=== PATIENT | female | born 1955 | race Caucasian/White ===

== ENCOUNTER 2016-11-16 14:04 | Outpatient (CLI) | END 2016-11-16 14:05 | disposition home or self-care (01) | LOC: LAB 14:04 | PROVIDERS: ATTEND Nurse Practitioner Family | DX: J02.9 Acute pharyngitis, unspecified (principal) | CPT/HCPCS: 87651; 87880 ==

== ENCOUNTER 2017-02-09 08:52 | Outpatient (CLI) ==
--- NOTE | 2017-02-10 10:01 | MAMMO ---
EXAM: Screening digital mammogram with 3-D tomosynthesis and CAD HISTORY: Screening mammogram. COMPARISON: Mammogram 02/16/2016 and 01/13/2014 FINDINGS: Breast density is scattered fibroglandular. Benign peripherally calcified cysts are noted in the bilateral breasts. Bilateral intramammary lymph nodes are present. There has been no signific ant interval change. IMPRESSION: No new or suspicious nodule or calcification. Recommendation: Annual screening mammogram. BIRADS II: Benign findings
== END 2017-02-09 08:53 | disposition home or self-care (01) ==
LOC: RAD 08:52
PROVIDERS: ATTEND Internal Medicine
DX: Z12.31 Encounter for screening mammogram for malignant neoplasm of breast (principal)
CPT/HCPCS: 77067

== ENCOUNTER 2020-09-24 17:16 | Inpatient (IN) ==
[2020-09-24 18:01] VITALS: BMI 38.9
[2020-09-24] MEDS ORDERED: NITROSTAT SL PRN (18:03)
[2020-09-24] MEDS ORDERED: ATROPINE SULFATE PFS IVP PRN (18:03)
[2020-09-24] MEDS ORDERED: TYLENOL PO PRN (18:03)
[2020-09-24 18:39] LABS: BASOPHILS # (AUTO) 0.1 K/uL (0-0.2); BASOPHILS % (AUTO) 0.8 % (0.0-3.0); EOSINOPHILS # (AUTO) 0.3 K/ul (0.0-0.7); EOSINOPHILS % (AUTO) 4.2 % (0.0-7.0); HEMATOCRIT 36.6 % (37.0-47.0); HEMOGLOBIN 12.6 g/dl (12.0-16.0); IMMATURE GRANULOCYTE % (AUTO) 0.2 % (0.0-5.0); LYMPHOCYTES # (AUTO) 2.4 K/uL (0.60-3.4); LYMPHOCYTES % (AUTO) 39.8 (10.0-50.0); MEAN CORPUSCULAR HEMOGLOBIN 30.8 pg (27.0-31.0); MEAN CORPUSCULAR HGB CONC 34.4 (31.8-35.4); MEAN CORPUSCULAR VOLUME 89.5 fl (81.0-99.0); MONOCYTES # (AUTO) 0.4 K/uL (0.4-2.0); MONOCYTES % (AUTO) 6.8 (0-10); NEUTROPHILS # (AUTO) 2.9 K/ul (2.0-6.9); NEUTROPHILS % (AUTO) 48.2 % (42.2-75.2); PLATELET COUNT 242 10^3/uL (140-440); RDW COEFFICIENT OF VARIATION 13.8 % (11.6-14.8); RED BLOOD COUNT 4.09 10^6/ul (4.20-5.40); WHITE BLOOD COUNT 6.01 K/ul (4.6-10.2)
[2020-09-24 18:41] LABS: BILIRUBIN,URINE Negative (NEGATIVE); CLARITY,URINE Clear (CLEAR); COLOR,URINE Yellow (YELLOW); GLUCOSE, URINE (UA) Negative (NEGATIVE); KETONES,URINE Negative (NEGATIVE); LEUKOCYTE ESTERASE ,URINE 1+ (NEGATIVE); NITRITE,URINE Negative (NEGATIVE); PH,URINE 5.5 (5-9); PROTEIN,URINE Negative (NEGATIVE); URINE, BLOOD Negative (NEGATIVE)
[2020-09-24 18:46] LABS: BACTERIA,URINE 1+ (NOT PRESENT); URINE RBC, MICROSCOPIC 0-2 (0-2)
--- NOTE | 2020-09-24 18:46 | DI ---
EXAM: PA and lateral views of the chest HISTORY: Short of breath COMPARISON: Chest Xray from 06/05/2020 FINDINGS: Lungs are clear with no lobar consolidation, failure, large effusion or significant atelec tasis. Cardiac and mediastinal silhouettes show no acute abnormality. No acute osseous or soft tiss ue abnormalities. IMPRESSION: 1. No active disease.
[2020-09-24 18:54] LABS: ALANINE AMINOTRANSFERASE 25.1 U/L (0-35); ALBUMIN 4.14 g/dL (3.5-5.0); ALKALINE PHOSPHATASE 38.4 U/L (53-141); ASPARTATE AMINO TRANSFERASE 28.7 U/L (14-36); BILIRUBIN,TOTAL 0.53 mg/dL (0.2-1.3); BLOOD UREA NITROGEN 26.2 mg/dL (7-17); CALCIUM 9.35 mg/dL (8.4-10.2); CARBON DIOXIDE 31.3 mmol/L (22-30.0); CHLORIDE 101.7 mmol/L (98-107); CREATINE KINASE 244.9 U/L (30-135); CREATININE 1.15 mg/dL (0.60-1.30); GLUCOSE 278.8 mg/dL (74-106); SODIUM 139.2 mmol/L (134.5-145); TOTAL PROTEIN 6.69 g/dL (6.3-8.2)
[2020-09-24 19:07] LABS: TROPONIN I < 0.012 ng/ml (0.0000-0.120)
[2020-09-24] MEDS: CARDIZEM PO SCH ×2 (19:24→20:12)
[2020-09-24] MEDS: ELIQUIS PO SCH (20:08)
[2020-09-24] MEDS: LANTUS SUBCUT SCH (20:09)
[2020-09-24] MEDS: FLOMAX PO SCH (20:54)
[2020-09-24] MEDS ORDERED: CARDIZEM PO ONE (22:12)
[2020-09-25 02:29] LABS: CREATINE KINASE 196.6 U/L (30-135)
[2020-09-25 02:42] LABS: TROPONIN I < 0.012 ng/ml (0.0000-0.120)
[2020-09-25 03:23] LABS: BASOPHILS % (AUTO) 0.8 % (0.0-3.0); EOSINOPHILS # (AUTO) 0.2 K/ul (0.0-0.7); EOSINOPHILS % (AUTO) 4.6 % (0.0-7.0); HEMATOCRIT 35.7 % (37.0-47.0); HEMOGLOBIN 12.3 g/dl (12.0-16.0); LYMPHOCYTES # (AUTO) 2.6 K/uL (0.60-3.4); MEAN CORPUSCULAR HEMOGLOBIN 31.1 pg (27.0-31.0); MEAN CORPUSCULAR HGB CONC 34.5 (31.8-35.4); MEAN CORPUSCULAR VOLUME 90.2 fl (81.0-99.0); MONOCYTES # (AUTO) 0.4 K/uL (0.4-2.0); MONOCYTES % (AUTO) 7.6 (0-10); NEUTROPHILS # (AUTO) 1.8 K/ul (2.0-6.9); PLATELET COUNT 208 10^3/uL (140-440); RDW COEFFICIENT OF VARIATION 13.7 % (11.6-14.8); RED BLOOD COUNT 3.96 10^6/ul (4.20-5.40); WHITE BLOOD COUNT 5.02 K/ul (4.6-10.2)
[2020-09-25 03:31] LABS: ALANINE AMINOTRANSFERASE 21.4 U/L (0-35); ALBUMIN 3.6 g/dL (3.5-5.0); ALKALINE PHOSPHATASE 34.9 U/L (53-141); ASPARTATE AMINO TRANSFERASE 38.4 U/L (14-36); BILIRUBIN,TOTAL 0.48 mg/dL (0.2-1.3); BLOOD UREA NITROGEN 22.8 mg/dL (7-17); CALCIUM 8.94 mg/dL (8.4-10.2); CARBON DIOXIDE 27.5 mmol/L (22-30.0); CHLORIDE 105.1 mmol/L (98-107); CREATININE 0.95 mg/dL (0.60-1.30); GLUCOSE 228.3 mg/dL (74-106); POTASSIUM 4.04 mmol/L (3.5-5.1)
[2020-09-25] MEDS: SYNTHROID PO SCH (05:30)
[2020-09-25] MEDS ORDERED: LANOXIN IVP ONE ×2 (08:57→19:27)
[2020-09-25] MEDS ORDERED: CARDIZEM PO ONE (08:58)
[2020-09-25] MEDS ORDERED: POTASSIUM CITRATE PO SCH (09:00)
--- NOTE | 2020-09-25 09:50 | HP ---
DATE OF SERVICE: 09/24/2020 REASON FOR HOSPITALIZATION/HISTORY OF PRESENT ILLNESS: Last couple of months feeling skip beats. Feels fine. No symptoms of CHF/CAD/COVID. Appetite good. PAST MEDICAL HISTORY: Kidney stone Dilated cardiomyopathy Diabetes Mellitus type 2 Dyslipidemia Hypertension PAST SURGICAL HISTORY: Gallbladder Colonoscopy Kidney stone Cyst, lip Broken bones and facial surgery REVIEW OF SYSTEMS: CONSTITUTIONAL: No fever, Fatigue. HEENT: No sinus drainage, no sore throat. RESPIRATORY: No cough, no congestion. CARDIOVASCULAR: No atypical chest pain for coronary artery disease. No angina, CHF symptoms or shortness of breath. Palpitations. GASTROINTESTINAL: No melena or abdominal pain. No GERD. GENITOURINARY: No hematuria, no prostatism, no polyuria. NUCLEAR MEDICINE SUPERVISOR: No blackout, no dizziness, no headache, no double vision. MUSCULOSKELETAL: Osteoarthritis pain, no joint swelling. ENDOCRINE: No weight loss, no weight gain. SKIN: Not dry, no rash. PSYCHIATRIC: Anxious, no depression, no suicidal thoughts, no homicidal thoughts. SOCIAL HISTORY: Marital Status: . Alcohol Usage: No. Tobacco Usage: No. FAMILY HISTORY: Father Mother Brother 1 Sister 4 MEDICATIONS: Acebutolol 400mg QHS Allopurinol 300mg QHS Aspirin 81mg QHS Fenofibrate 160mg QHS Ferrous sulfate 65mg QAM hydrochlorothiazide 12.5mg QAM Lantus 80 units HS Levothyroxine 150mg QAM Losartan 50mg QAM Metformin 1000mg BID Mexiletene 150mg QHS Rosuvastatin CA 20mg QAM Potassium Citrate 10meq Tamulosin 0.4mg QHS Centrum Silver QD ALLERGIES: Emycin Glipizide PHYSICAL EXAMINATION: V/S: Pulse 120, blood pressure 110/64, temperature, oxygen saturation 98%. BMI 38.9, height 5'10, weight 271.6. GENERAL APPEARANCE: Oriented times three. HEENT: Normal. NECK: No JVP, no bruits. RESPIRATORY: Lungs are clear. CARDIOVASCULAR: S1, S2, no S3, no murmur. Rate 120. No cyanosis, clubbing. No ascites. GI/ABDOMEN: No tenderness. Bowel sounds are active. EXTREMITIES: edema, pulses +1, equal. NUCLEAR MEDICINE SUPERVISOR: Deep tendon reflexes, sensory, motor and gait all normal. RECTAL: 02/[address] Gonzalez/MAMMOGRAM: 12- [facility] LABS: Echo 2019 Enlarged LA 4.2, normal LV. ASSESSMENT: 1. Atrial flutter with RVR. 2. Acute pancreatitis 06/14 3. Gall stones/Cholecystitis 4. Status post cholecystectomy 06/14 5. Surgery kidney stone right times 2, [place] 03/08 6. Dilated cardiomegaly 7. Headache 8. History of lung nodules, refuses chest CT 9. Fatty liver 10.Dyslipidemia 11.Diabetes Mellitus type 2 12.Endoscopy in [place] 13.Right knee, Dr. 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 B12 deficiency 19.COVID vaccinated 20.Morbid obesity, bariatric referral declined PLAN: 1. Admit 2. Routine telemetry orders 3. Continue all home medications 4. Losartan 50mg 1/2 tablet PO QAM 5. Betapace 6. Cardizem 60mg PO BID 7. T4 TSH 8. Eliquis 5mg PO BID 9. Discontinue Acebutol and Mexletene TIME SPENT: More than 70 minutes. MTDD
[2020-09-25] MEDS: HYDROCHLOROTHIAZIDE PO SCH (09:58)
[2020-09-25] MEDS: CRESTOR PO SCH (09:58)
[2020-09-25] MEDS: MULTIVITAMIN TABLET PO SCH (09:58)
[2020-09-25] MEDS: COZAAR PO SCH (09:59)
[2020-09-25] MEDS: ASPIRIN CHEWABLE PO SCH ×2 (09:59→10:10)
[2020-09-25] MEDS: ZYLOPRIM PO SCH (09:59)
[2020-09-25] MEDS: MICRO-K CAP PO SCH ×2 (09:59→16:55)
[2020-09-25] MEDS: GLUCOPHAGE PO SCH ×2 (09:59→16:55)
[2020-09-25] MEDS: FLOMAX PO SCH (10:00)
[2020-09-25] MEDS: ELIQUIS PO SCH ×2 (10:00→20:09)
[2020-09-25] MEDS: TRIGLIDE PO SCH (10:00)
[2020-09-25] MEDS: CARDIZEM PO SCH ×2 (10:00→20:10)
[2020-09-25] MEDS ORDERED: FERROUS SULFATE PO SCH (12:00)
[2020-09-25] MEDS: FERROUS SULFATE PO SCH (12:14)
--- NOTE | 2020-09-25 14:53 | PCM.PROG ---
Attending Provider: ATTENDING PROVIDER: Dr. ALVIN ZAVALA DATE OF SERVICE: 09/25/20 SUBJECTIVE: This 65 year old /WHITE F was hospitalized 09/24/20 with atrial flutter with RVR. The patient has been taken off Mexiletine and Acebutolol. She doesn't have any ventricular arrhythmia. Overall, cardiac status is stable with no CHF or coronary insufficiency. REVIEW OF SYSTEMS: CONSTITUTIONAL: No night sweats. No fatigue, malaise, lethargy. No fever or chills. HEENT: Eyes: No visual changes. No eye pain. No eye discharge. ENT: No runny nose. No epistaxis. No sinus pain. No odynophagia. No congestion. RESPIRATORY: No cough, no congestion. No hemoptysis. No shortness of breath. CARDIOVASCULAR: No angina symptoms. No CHF symptoms. No atypical chest pain for CAD. No palpitations. No orthopnea.. GASTROINTESTINAL: No abdominal pain. No nausea or vomiting. No diarrhea or constipation. No hematemesis. No hematochezia. GENITOURINARY: No urgency. No frequency. No dysuria. No hematuria. No obstructive symptoms. No discharge. No pain. No significant abnormal bleeding. MUSCULOSKELETAL: No musculoskeletal pain; no joint swelling. NEUROLOGICAL: Awake, alert, oriented to time, place and person. No headache. No neck pain. No syncope. No seizures. No dizziness. PSYCHIATRIC: Not anxious. No depression. No suicidal thoughts. No homicidal thoughts. SKIN: No rash. No lesions. No wounds. ENDOCRINE: No unexplained weight loss. No weight gain. HEMATOLOGIC/LYMPHATIC: No anemia. No purpura. No petechiae. No prolonged or excessive bleeding. No palpable lymph nodes. PHYSICAL EXAMINATION: GENERAL: The patient is awake, alert and oriented, lying/sitting in bed in no distress. VITAL SIGNS: Temperature 98.0 F, Pulse 125, Respiratory Rate 20, BP 101/74, Pulse Ox 98% HEENT: Head normocephalic, atraumatic. Eyes: Extraocular muscles are intact. Pupils are equal, round and reactive to light and accommodation. Ears: No lesions. Nose appeared normal. Throat: No exudate or erythema. NECK: Supple. No JVD, no carotid bruit. No lymphadenopathy or thyromegaly. LUNGS: Clear to auscultation. Percussion note normal. Chest symmetrical. HEART: S1, S2, no S3. No murmurs. No cyanosis or clubbing. No ascites. Pulses: Dorsalis pedis and posterior tibial pulses +1 to +2 both sides. ABDOMEN: Soft. Non-tender. Bowel sounds active. No CVA tenderness. No mass felt. EXTREMITIES: No edema. Full range of motion of all extremities, equal. NEUROLOGIC: No focal deficit. Cranial nerves II through XII are grossly intact. No headache, no double vision or headache. SKIN: Warm and dry. Intact. Turgor-normal. LYMPHATIC: No palpable lymph nodes/no lymphedema. MUSCULOSKELETAL: Normal joints with no swelling. Muscle tone is normal. LAB REVIEW: 09/25/20 02:15 09/25/20 02:15 09/25/20 02:15: Sodium 139.0, Potassium 4.04, Chloride 105.1, Carbon Dioxide 27.5, Anion Gap 10.44, BUN 22.8 H, Creatinine 0.95, Estimated GFR (MDRD) 59.00, BUN/Creatinine Ratio 24.00, Glucose 228.3 H D, Calcium 8.94, Total Bilirubin 0.48, AST 38.4 H, ALT 21.4, Alkaline Phosphatase 34.9 L, Total Protein 6.00 L, Albumin 3.60, Globulin 2.40, Albumin/Globulin Ratio 1.50 09/25/20 02:15: WBC 5.02, RBC 3.96 L, Hgb 12.3, Hct 35.7 L, MCV 90.2, MCH 31.1 H , MCHC 34.5, RDW Coeff of Anuj 13.7, Plt Count 208, Immature Gran % (Auto) 0.0, Neut % (Auto) 36.0 L, Lymph % (Auto) 51.0 H, Victoria % (Auto) 7.6, Eos % (Auto) 4.6, Baso % (Auto) 0.8, Neut # (Auto) 1.8 L, Lymph # (Auto) 2.6, Victoria # (Auto) 0.4, Eos # (Auto) 0.2, Baso # (Auto) 0.0, Immature Gran # (Auto) 0.0 09/25/20 02:15: Total Creatine Kinase 196.6 H, CK-MB (CK-2) 4.010 H, CK-MB (CK- 2) % 2.0300, Troponin I < 0.012 09/24/20 18:35: Urine Color Yellow, Urine Clarity Clear, Urine pH 5.5, Ur Specific [place] 1.025, Urine Protein Negative, Urine Glucose (UA) Negative, Urine Ketones Negative, Urine Blood Negative, Urine Nitrite Negative, Urine Bilirubin Negative, Urine Urobilinogen 2.0 H, Ur Leukocyte Esterase 1+ H, Urine Microscopic RBC 0-2, Urine Microscopic WBC 5-10, Ur Squamous Epith Cells 2-5, Urine Bacteria 1+ 09/24/20 18:34: Sodium 139.2, Potassium 4.20, Chloride 101.7, Carbon Dioxide 31.3 H, Anion Gap 10.40, BUN 26.2 H, Creatinine 1.15, Estimated GFR (MDRD) 47.00, BUN/Creatinine Ratio 22.78, Glucose 278.8 H, Calcium 9.35, Total Bilirubin 0.53, AST 28.7, ALT 25.1, Alkaline Phosphatase 38.4 L, Total Creatine Kinase 244.9 H, CK-MB (CK-2) 5.230 H*, CK-MB (CK-2) % 2.1300, Troponin I < 0.012, Total Protein 6.69, Albumin 4.14, Globulin 2.55, Albumin/Globulin Ratio 1.62, TSH 1.520 09/24/20 18:34: WBC 6.01, RBC 4.09 L, Hgb 12.6, Hct 36.6 L, MCV 89.5, MCH 30.8, MCHC 34.4, RDW Coeff of Anuj 13.8, Plt Count 242, Immature Gran % (Auto) 0.2, Neut % (Auto) 48.2, Lymph % (Auto) 39.8, Victoria % (Auto) 6.8, Eos % (Auto) 4.2, Ba so % (Auto) 0.8, Neut # (Auto) 2.9, Lymph # (Auto) 2.4, Victoria # (Auto) 0.4, Eos # (Auto) 0.3, Baso # (Auto) 0.1, Immature Gran # (Auto) 0.0 ASSESSMENT: Please see below. 1. Atrial flutter with RVR. PLAN: 1. Discontinue Acebutolol and Mexiletine. 2. Lanoxin 0.25 mg IV. 3. One extra dose of Cardizem today. 4 Slow heart rate is the goal. Atrial fibrillation is a difficult rhythm to convert to sinus. The patient is already on Eliquis. Complications of atrial fibrillation discussed. Eliquis and its side effects discussed with the patient to include GI bleed, intracranial bleed. Advised not to take NSAIDS. . Plan and coordination of the patient's care discussed in the presence of [employer] Center Manager and nurse. CONDITION: Stable SCRIBED BY: ORA HOWE Broaching Machine Repairer scribed while in presence of service performed by Dr. ALVIN ZAVALA on 09/25/20 ([id number])
[2020-09-25] MEDS: LANTUS SUBCUT SCH (20:37)
[2020-09-25] MEDS ORDERED: ZYLOPRIM PO SCH (21:00)
[2020-09-26 05:12] LABS: BASOPHILS % (AUTO) 0.7 % (0.0-3.0); EOSINOPHILS # (AUTO) 0.2 K/ul (0.0-0.7); EOSINOPHILS % (AUTO) 4.6 % (0.0-7.0); HEMATOCRIT 35.5 % (37.0-47.0); HEMOGLOBIN 12.3 g/dl (12.0-16.0); IMMATURE GRANULOCYTE % (AUTO) 0.2 % (0.0-5.0); LYMPHOCYTES # (AUTO) 1.9 K/uL (0.60-3.4); LYMPHOCYTES % (AUTO) 44.4 (10.0-50.0); MEAN CORPUSCULAR HEMOGLOBIN 30.9 pg (27.0-31.0); MEAN CORPUSCULAR HGB CONC 34.6 (31.8-35.4); MEAN CORPUSCULAR VOLUME 89.2 fl (81.0-99.0); MONOCYTES # (AUTO) 0.4 K/uL (0.4-2.0); MONOCYTES % (AUTO) 8.9 (0-10); NEUTROPHILS # (AUTO) 1.8 K/ul (2.0-6.9); NEUTROPHILS % (AUTO) 41.2 % (42.2-75.2); PLATELET COUNT 184 10^3/uL (140-440); RDW COEFFICIENT OF VARIATION 13.6 % (11.6-14.8); RED BLOOD COUNT 3.98 10^6/ul (4.20-5.40); WHITE BLOOD COUNT 4.37 K/ul (4.6-10.2)
[2020-09-26 05:30] LABS: ALANINE AMINOTRANSFERASE 22.2 U/L (0-35); ALBUMIN 3.65 g/dL (3.5-5.0); ALKALINE PHOSPHATASE 36.6 U/L (53-141); ASPARTATE AMINO TRANSFERASE 24.2 U/L (14-36); BILIRUBIN,TOTAL 0.51 mg/dL (0.2-1.3); BLOOD UREA NITROGEN 19.9 mg/dL (7-17); CALCIUM 8.96 mg/dL (8.4-10.2); CHLORIDE 103.9 mmol/L (98-107); CREATININE 1.03 mg/dL (0.60-1.30); GLUCOSE 226.5 mg/dL (74-106); POTASSIUM 3.84 mmol/L (3.5-5.1); SODIUM 138.5 mmol/L (134.5-145); TOTAL PROTEIN 6.03 g/dL (6.3-8.2)
[2020-09-26] MEDS: SYNTHROID PO SCH (05:48)
[2020-09-26] MEDS ORDERED: LANOXIN PO ONE ×2 (07:51→15:39)
[2020-09-26] MEDS: ZYLOPRIM PO SCH (08:48)
[2020-09-26] MEDS: MULTIVITAMIN TABLET PO SCH (08:49)
[2020-09-26] MEDS: CARDIZEM PO SCH (08:49)
[2020-09-26] MEDS: TRIGLIDE PO SCH (08:49)
[2020-09-26] MEDS: GLUCOPHAGE PO SCH ×2 (08:50→16:40)
[2020-09-26] MEDS: MICRO-K CAP PO SCH ×2 (08:50→16:39)
[2020-09-26] MEDS: FLOMAX PO SCH (08:51)
[2020-09-26] MEDS: HYDROCHLOROTHIAZIDE PO SCH (08:51)
[2020-09-26] MEDS: COZAAR PO SCH (08:51)
[2020-09-26] MEDS: ELIQUIS PO SCH (08:52)
[2020-09-26] MEDS: CRESTOR PO SCH (11:34)
[2020-09-26] MEDS: FERROUS SULFATE PO SCH (11:34)
[2020-09-26 14:45] VITALS: BP 109/70; TEMP 96.4
--- NOTE | 2020-09-29 10:06 | ECHO2D ---
Date of Exam: 09/26/2020 Ordering Physician: DR. ALVIN ZAVALA Room #: 110 Reason for Echo: HTN, DM, ATRIAL FLUTTER, ATRIAL FIB, DILATED CARDIOMYOPATHY M-Mode Normal Adult Results LV Dimensions Normal Adult Results AoV Opening excursions >1.6 >1.6 LVEDD-base- 3.5-5.8 4.6 Ao root dimensions 2.0-3.7 3.6 LVESD-base- 3.1-4.6 L. Atrium dimensions 1.9-3.8 4.6 Post. Wall thickness 0.8-1.1 1.2 IV septum (thickness) 0.7-1.2 1.4 Post. Wall excursion 0.72-1.3 NORMAL Septal motion 0.7 Systolic motion R. Ventricular cavity 1.5-2.0 NORMAL LVEF 60% 50% Paradoxical septal wall motion NORMAL 2-D : ENLARGED LEFT ATRIAL CAVITY, MILDLY HYPOKINETIC STIFF SEPTUM, NORMAL VALVES, NO EFFUSION, NO THROMBUS M-MODE: MV: NORMAL AV: NORMAL TV: NORMAL PV: CHAMBER SIZE: ENLARGED LEFT ATRIAL CAVITY WALL MOTION: MILDLY HYPOKINETIC SEPTUM PERICARDIUM: NORMAL INTERPRETATION: 1. LEFT VENTRICULAR HYPERTROPHY 2. ENLARGED LEFT ATRIAL CAVITY 3. HYPOKINETIC SEPTUM --EJECTION FRACTION 50% 4. NORMAL VALVES (ECHO DONE WITH ATRIAL FLUTTER WITH 2:1 ATRIOVENTRICULAR BLOCK) MTDD
--- NOTE | 2020-09-29 12:37 | DS ---
DATE OF SERVICE: 09/28/2020 FINAL DIAGNOSIS: 1. Atrial flutter AV block 2. Diabetes Mellitus 3. Hypertension 4. Morbid obesity 5. Dyslipidemia 6. History of PVC 7. Gouty arthritis 8. Hypothyroidism 9. Acute pancreatitis 06/14 10. Gall stones/Cholecystitis 11. Status post cholecystectomy 06/14 [place] 12. Surgery kidney stone right times 2, [place] 03/08 13. Dilated cardiomegaly 14. Headache 15. History of lung nodules, refuses chest CT 16. Fatty liver 17.Endoscopy in [place] 18.Right knee, Dr. 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 B12 deficiency 24.COVID vaccinated DISCHARGE INSTRUCTIONS: Discharge home. Followup with Dr. Carlson in his office on 10/01/2020. MEDICATIONS AT DISCHARGE: Allopurinol Fenofibrate Insulin Levothyroxine Metformin Potassium Rosuvastatin Tamsulosin Ferrous Sulfate NEW PRESCRIPTIONS: Cardizem CD 12 hour 120mg twice a day Eliquis 5mg PO twice a day Lanoxin 0.125mg PO daily DISCONTINUED MEDICATIONS: Aspirin Acebutolol Mexiletine DIET INSTRUCTIONS: As tolerated ACTIVITY: Resume as tolerated LABS: Hgb 12.3, hct 35, WBC 5,000 normal differential, creatinine 0.9, BUN 22, potassium 4, TSH normal. Cardiac markers were negative. GFR 59cc per minute. HOSPITAL COURSE: 65 year old white female was seen in the office and the pulse was noted to be 120 irregular. The patient was in atrial flutter with 2 to 1. The patient has been on Mexiletine and Acebutolol for a long time for ventricular arrhythmia. She was taken off and observed. At the same time the patient was started on Cardizem, later on the patient was started on 120mg twice a day, Losartan dose was decreased to 25mg. Will add Cardizem hypotensive effect. Lanoxin was used to control the ventricular rate. Echo showed enlarged LA cavity 4.6cm size with mildly hypokinetic stiff septum with ejection fraction 50%. The patient is going to be seen as an outpatient. The patient did not have CHF. The patient is very likely going to be referred to principal biostatistician for possible cardioversion for flutter ablation. Both of them were explained to the patient. Echocardiogram did not reveal any evidence of any thrombus or thrombi. The patient had transthoracic echocardiogram done. The patient again was explained about Eliquis and side effects, GI bleed and intracranial bleed discussed. The patient was advised not to mix it with nonsteroidal anti-inflammatory any baby aspirin. The patient is morbidly obese. Diet discussed. Advised to lose weight. The patient had recent pancreatitis with cholelithiasis. The patient is being followed by boat engine mechanic at [place] and urologist also in [place]. TIME SPENT: More than 60 minutes. VALENTIN
--- NOTE | 2020-09-29 12:38 | PN ---
09/24/2020: Level 5 09/25/2020: Intermediate 09/26/2020: D as in discharge MTDD
--- NOTE | 2020-09-30 11:16 | PN ---
DATE OF SERVICE: 09/26/20 SUBJECTIVE: The patient was seen and examined this morning. The patient's condition seems to be stable. Her rhythm strips examined throughout the night. They are viewed. The patient has atrial flutter with varying AV block; the patient is usually 2:1 but alot of times after the medications for several hours the patient is 4:1, 3:1 rate of 75 to 110/min. REVIEW OF SYSTEMS: CONSTITUTIONAL: No night sweats. No fatigue, malaise, lethargy. No fever or chills. HEENT: Eyes: No visual changes. No eye pain. No eye discharge. ENT: No runny nose. No epistaxis. No sinus pain. No sore throat. No odynophagia. No congestion. RESPIRATORY: No cough, no congestion. No hemoptysis. No shortness of breath. CARDIOVASCULAR: No angina symptoms. No CHF symptoms. No atypical chest pain for CAD. No palpitations. No PND. No orthopnea. GASTROINTESTINAL: No abdominal pain. No nausea or vomiting. No diarrhea or constipation. No hematemesis. No hematochezia. GENITOURINARY: No urgency. No frequency. No dysuria. No hematuria. No obstructive symptoms. No discharge. No pain. No significant abnormal bleeding. MUSCULOSKELETAL: No musculoskeletal pain; no joint swelling. NEUROLOGICAL: No headache. No neck pain. No syncope. No seizures. No dizziness. PSYCHIATRIC: Not anxious. No depression. No suicidal thoughts. No homicidal thoughts. SKIN: No rash. No lesions. No wounds. ENDOCRINE: No unexplained weight loss. No weight gain. HEMATOLOGIC/LYMPHATIC: No anemia. No purpura. No petechiae. No prolonged or excessive bleeding. No palpable lymph nodes. PHYSICAL EXAMINATION: HEENT: Head normocephalic, atraumatic. Eyes: Extraocular muscles are intact. Pupils are equal, round and reactive to light and accommodation. Ears: No lesions. Nose appeared normal. Throat: No exudate or erythema. NECK: Supple. No JVD, no carotid bruit. No lymphadenopathy or thyromegaly. LUNGS: Decreased breath sounds but clear to auscultation. Percussion note normal. Chest symmetrical. HEART: S1, S2, no S3. No murmurs. No cyanosis or clubbing. No ascites. Pulses: Dorsalis pedis and posterior tibial pulses +1 to +2 bilaterally. ABDOMEN: Soft. Nontender. Bowel sounds active. No CVA tenderness. No mass felt. EXTREMITIES: No pedal edema. Full range of motion of all extremities, equal. NEUROLOGIC: No focal deficit. Cranial nerves II through XII are grossly intact. No headache. No double vision. SKIN: Not dry. Intact. Turgor - normal. LYMPHATIC: No palpable lymph nodes/no lymphedema. MUSCULOSKELETAL: Normal joints with no swelling. Muscle tone is normal. EKG atrial flutter with 2:1 with rate 110 to 120/min. With carotid massage the patient goes into 4:1. The patient had an echocardiogram done which showed mildly hypokinetic septal wall from atrial flutter. Ejection fraction is 50%. LV size is normal. LA size 4.6 cm size. Valvular structures are normal. ASSESSMENT: 1. Atrial flutter with AV block. 2. Echo showed LVH with LV ejection fraction 50%. LA size is 4.6 cm otherwise the echo is normal. Echo was done with atrial flutter with 2:1. PLAN: 1. The patient has been taken off Acebutolol and Mexitil. 2. Cardizem 120 mg p.o. twice a day. 3. Eliquis 5 mg twice a day. 4. Lanoxin 0.25 mg. Dose was given yesterday. Two doses to be given today. From tomorrow the patient is going to be on 0.125. Mainly Lanoxin has been used to control the rate. 5. The patient's systolic blood pressure is borderline 100 to 110. We have to take help of Lanoxin to control the patient's rate. I think the patient cannot tolerate more than 240 mg of Cardizem and possible addition of beta honey. 7. The patient was explained about the possibility of cardioversion or atrial flutter, ablation. The patient is going to be referred to a business unit leader. The patient is to be seen on between 9:30 to 11. Eliquis with intracranial bleed and GI bleed discussed, advised not to take any nonsteroidal antiinflammatory while on Eliquis. CONDITION: Stable. TIME SPENT: More than 30 minutes. Plan and coordination of the patient's care discussed in the presence of nurse. VALENTIN
== END 2020-09-26 17:05 | disposition home or self-care (01) | DRG 303 ==
LOC: MEDSURG A 17:16
PROVIDERS: ADMIT Internal Medicine; ATTEND Internal Medicine